=== PATIENT | female | born 1930 | race Caucasian/White ===

== ENCOUNTER 2016-09-15 13:33 | Inpatient (IN) | payer OTHER ==
[2016-09-14 23:03] LABS: % IRON SAT 15 % (20-50); A/G RATIO 0.9 (0.7-1.9); ALBUMIN 3.2 G/DL (3.5-5.0); ALKALINE PHOSPHATASE 71 U/L (45-117); BUN (BLOOD UREA NITROGEN) 17 MG/DL (6-23); CHLORIDE, SERUM 104 MMOL/L (96-112); CHOLESTEROL 181 MG/DL (< 200); CO2 (CARBON DIOXIDE) 25 MMOL/L (24-34); GFR AFRICAN AMERICAN 69 ML/MIN (>=60); GFR NON AFRICAN AMERICAN 59 ML/MIN (>=60); GLOBULIN 3.7 G/DL (2.5-4.1); IRON BINDING CAPACITY 239 MCG/DL (225-410); IRON, SERUM 36 MCG/DL (35-150); SGOT(AST) 19 U/L (5-40); SGPT(ALT) 17 U/L (5-65); SODIUM, SERUM 139 MMOL/L (135-148); TOTAL BILIRUBIN 0.3 MG/DL (0-1.2); TOTAL PROTEIN 6.9 G/DL (6.0-8.5)
[2016-09-14 23:10] LABS: CHOL/HDL RATIO(NOT ORDER) 3.8 (0-5); GLUCOSE, SERUM 115 MG/DL (60-99); HDL CHOLESTEROL 48 MG/DL (> 49); LDL CHOLESTEROL 83 MG/DL (< 130); NON-HDL CHOLESTEROL 133 MG/DL (< 160); TRIGLYCERIDE 253 MG/DL (< 150); ULTRASENSITIVE TSH 0.523 MCIU/ML (0.358-3.740)
--- NOTE | ~2016-09-15 | DS ---
Discharge Summary [facility] [address] [place]. [address] NAME: Kayla COLE : 34 STATUS : DIS IN PAT#: [id number] AGE: 85 ADM/REG DATE : 09/15/16 MR#: [id number] REPORT SERV DATE: 09/23/16 DICTATED BY: REBECCA RODRIGUEZ DATE: 09/22/16 REPORT STATUS : Draft TRANSCRIBED BY: MODL DATE: 09/22/16 ADMISSION DATE: 09/15/2016 DISCHARGE DATE: 09/22/2016 CONSULTANTS: Dr. Rebecca Fatima, Pulmonary Critical Care; Dr. Zain Gupta, Cardiology; Dr. Briscoe, Ear Nose and Throat; Dr. Jayna Novoa, Pulmonary. DISCHARGE DIAGNOSES: 1. 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 2. Hyponatremia due to diuretics, resolved. 3. Low blood pressure due to cardiomyopathy and medication. 4. Chronic pain due to fibromyalgia, on chronic narcotics. 5. History of iron-deficiency anemia. 6. History of gastroesophageal reflux disease. 7. Mild thrombocytopenia. HISTORY: This patient presented to the emergency room at [facility] complaining of shortness of breath. The ER felt she had stridor and a non-ST elevation myocardial infarction. They placed her on Solu-Medrol and heparin and had her admitted to the intensive care unit. The patient's cardiac troponins went up to 2.61. She was seen by Dr. Gupta of Cardiology. She had an echocardiogram on 09/16/2016 showing left atrial size 3.2 cm. Left ventricular ejection fraction estimated at 55%. No significant valvular abnormalities. She underwent a left heart catheterization with Dr. Josh Trammell on 09/16/2016 showing nonobstructive coronary artery disease, severe global left ventricular dysfunction sparing the base suggestive of stress-induced cardiomyopathy, ejection fraction 20%. Left ventricular end- diastolic pressure 23. No mitral regurgitation. No significant gradient across the aortic valve. Dr. Gupta recommended medical therapy with aspirin, beta paige, statin, and JAK inhibitor. The patient's blood pressures were low from the beginning and stayed low much of the time that she was here. She was not able to tolerate the Coreg or the lisinopril and these had to be discontinued because of blood pressures being too low. The patient did develop some hyponatremia while getting diuretics. This resolved after the diuretics were discontinued and she was given some saline intravenously. The patient did have some cough, and at one point in time, again was thought to possibly have stridor. Ear Nose and Throat, Dr. Briscoe, saw the patient in consultation. He indicated he did not find any obstruction to the airway whatsoever, but felt she just had some noisy breathing. Pulmonary, Dr. Novoa, recommended some Augmentin to complete a seven-day course. Her Discharge Summary [address] [address] NAME: Kayla COLE : 32 STATUS : DIS IN PAT#: [id number] AGE: 85 ADM/REG DATE : 09/15/16 MR#: [id number] REPORT SERV DATE: 09/23/16 DICTATED BY: REBECCA RODRIGUEZ DATE: 09/22/16 REPORT STATUS : Draft TRANSCRIBED BY: TRENTON DATE: 09/22/16 procalcitonin was less than 0.05. Her white blood count was normal. Physical therapy assessment found the need for inpatient rehab and those recommendations have been accepted by the patient. Case Management has been working to get her into rehab at [facility]. While here, she had two blood cultures, no growth. DISCHARGE MEDICATIONS: Augmentin 875 mg p.o. b.i.d. with meals through 09/26/2016 then stop; aspirin 81 mg daily; Caltrate 600 mg daily, ferrous sulfate 325 mg daily (hemoglobin at discharge 9.8); gabapentin 300 mg t.i.d.; magnesium oxide 400 mg daily; Singulair 10 mg daily; Prilosec 40 mg daily; Evista 60 mg daily; Florastor one p.o. b.i.d. for three weeks; zinc sulfate 110 mg p.o. daily; DuoNeb q.6 hours p.r.n. shortness of breath; Dulera 200/5 two puffs b.i.d., Tylenol 650 q.6 hours p.r.n. pain or fever; Mylanta 30 mL p.r.n. indigestion; Xanax 0.5 mg b.i.d. p.r.n. anxiety (chronic medicine for her); artificial tears p.r.n.; Flonase nasal spray p.r.n.; Requip 0.25 mg at bedtime, p.r.n. restless legs; Percocet 10/325 q.6 hours p.r.n. pain which is a chronic medicine for her; Lipitor 20 mg p.o. daily. I spent 39 minutes today with the patient and with discharge planning. DICTATED BY: Rebecca Rodriguez M.D. RSG/MODL Rebecca Rodriguez M.D. / [id number] CC: Franklyn Pérez M.D. [facility] HospitalFranklyn Duff M.D. TIMOTHY ASHBURN, MD
--- NOTE | ~2016-09-15 | CN ---
Consultation Report [facility] [address] [place] [place]. [address] NAME: NEMESIO COLE : 32 STATUS : ADM IN PAT#: [id number] AGE: 85 ADM/REG DATE : 09/15/16 MR#: [id number] REPORT SERV DATE: 09/16/16 DICTATED BY: DAILY GUPTA DATE: 09/16/16 REPORT STATUS : Draft TRANSCRIBED BY: MODL DATE: 09/16/16 CARDIOLOGY CONSULTATION DATE OF CONSULTATION: 09/16/2016 CHIEF COMPLAINT: Respiratory distress. HISTORY OF PRESENT ILLNESS: The patient is an 85-year-old female without known coronary artery disease, who presented to the emergency department with complaints of progressive respiratory distress. She was found to have elevated troponin and admitted to the Critical Care Service for respiratory failure and non-Q-wave GA. Currently, pain-free. On presentation, she reported some atypical chest pain. She does report however for the last several months, she has had intermittent chest pain, it can occur at rest, it is not reliably reproduced with exertion, but can occur with exertion. The patient is markedly sedentary. She reports significant fatigue and poor exercise tolerance with any physical activity. She states that she simply for the most part, walks to the bathroom with a walker. She becomes so fatigued in doing so that she cannot perform other activities and lays down to rest. She states that she has been treated for GERD with no improvement in these chest pain symptoms. She is currently pain-free. During the course of evaluation and admission, she underwent laboratories including cardiac enzymes, which were elevated. Troponin last evening 2.61. Subsequent troponin 2.33. Her electrocardiogram demonstrates no acute ST changes. She is currently pain-free. She has no past history of known coronary artery disease in 2013, and was seen in cardiology evaluation for preoperative risk assessment. Echocardiogram was unremarkable at that time. PAST MEDICAL HISTORY: 1. Chronic pain syndrome secondary to degenerative disc and joint disease. 2. Anxiety disorder. 3. Fibromyalgia. 4. Restless legs syndrome. 5. GERD. 6. Polymyalgia rheumatica. 7. Venous insufficiency. PAST SURGICAL HISTORY: Venous stripping, excision of various skin cancers, umbilical herniorrhaphy, and previous inguinal herniorrhaphy. FAMILY HISTORY: Mother of cerebrovascular accident at age 99. Father in his 70s - the patient is unaware of the etiology of his . SOCIAL HISTORY: The patient reports that she smoked two years as a young teenager, none since. She denies alcohol or illicit drug use. REVIEW OF SYSTEMS: Consultation Report [place] [id number] [place] [place]. [address] NAME: NEMESIO COLE : 32 STATUS : ADM IN PAT#: [id number] AGE: 85 ADM/REG DATE : 09/15/16 MR#: [id number] REPORT SERV DATE: 09/16/16 DICTATED BY: DAILY GUPTA DATE: 09/16/16 REPORT STATUS : Draft TRANSCRIBED BY: MODL DATE: 09/16/16 Review of systems is negative for all organ systems except per the history of present illness. PHYSICAL EXAMINATION: VITALS: Blood pressure 115/78, pulse 87 and regular, respirations 20 and unlabored, saturating 99% on 4 L nasal cannula. Weight 70 kg. GENERAL: Elderly female, in no acute distress. HEENT: Normal. NECK: Supple, no JVD or bruit, normal carotid upstroke bilaterally, no thyromegaly. LUNGS: Clear to auscultation and percussion. No wheezes, rales or rhonchi. No use of accessory muscles. CARDIOLOGY: Regular rhythm, normal S1, S2, no thrill, no murmur, rubs or gallops, normal PMI. ABDOMEN: Bowel sounds positive, soft, nontender, and nondistended. No masses or aortic bruits. No hepatosplenomegaly or hepatojugular reflux. EXTREMITIES: No edema. Normal pulses. No clubbing or cyanosis. SKIN: Warm and dry, no significant rash. NEUROLOGIC: Alert and oriented x 3. Appropriate mood. EKG: Sinus rhythm with nonspecific ST and T-wave changes. LABORATORIES: 1. Sodium 141, potassium 4.5, chloride 106, CO2 of 24, BUN 16, creatinine 0.85, glomerular filtration rate 63, troponin 2.33, glucose 157. WBC 5.4, hemoglobin 10.3, hematocrit 31.3, platelets 193,000. 2. CT of the chest - no evidence of pulmonary embolism. No evidence of aortic dissection. 3. Blood cultures negative x1 day. 4. Serial troponins 2.61 and 2.33. 5. Arterial blood gas on admission pH 7.4, pCO2 of 40, PO2 of 127, base excess -1. Bicarb 24, this is on 2 liters nasal cannula. IMPRESSION: Non-Q-wave myocardial infarction - currently asymptomatic on heparin drip, hemodynamically stable. We have discussed treatment options including medical management versus invasive evaluation including catheterization intervention is indicated. The patient desires to proceed with an invasive strategy as she has had longstanding recurrent chest pain which although treated for possible gastroesophageal reflux disease, has continued with inadequate control on medications. The risks, benefits, alternatives have been discussed with the patient. Complications including but not limited to, , myocardial infarction, stroke, renal failure, life-threatening arrhythmia, life-threatening allergic contrast reaction, and vascular cardiac injury, required emergent surgery have been discussed with the patient. The patient voices understanding these potential risks and desires to proceed. We will place further plans and recommendations on catheterization results. Consultation Report [place] [id number] [facility] [place]. [address] NAME: NEMESIO COLE : 34 STATUS : ADM IN [facility]#: [id number] AGE: 85 ADM/REG DATE : 09/15/16 MR#: [id number] REPORT SERV DATE: 09/16/16 DICTATED BY: DAILY GUPTA DATE: 09/16/16 REPORT STATUS : Draft TRANSCRIBED BY: TRENTON DATE: 09/16/16 CSL/TRENTON Simone Gupta M.D. / [id number] CC: MD Charles Cates M.D.
--- NOTE | ~2016-09-15 | HP ---
History And Physical [place] [id number] [place]. [address] NAME: NEMESIO COLE : 34 STATUS : ADM IN [facility]#: [id number] AGE: 85 ADM/REG DATE : 09/15/16 MR#: [id number] REPORT SERV DATE: 09/16/16 DICTATED BY: REBECCA FATIMA DATE: 09/15/16 REPORT STATUS : Draft TRANSCRIBED BY: MODL DATE: 09/15/16 DATE OF ADMISSION: 09/15/2016 TIME: 1930 hours. Seen in MICU bed 11. HISTORY OF PRESENT ILLNESS: The patient presented to the ER via EMS for increased shortness of breath and discomfort. Came to the ER, was evaluated by the ER physician, who thought she had mild respiratory failure, stridor, and non-STEMI. She was placed on Solu-Medrol and heparin. The patient says she was in her bathroom when she began to have intermittent shortness of breath. This has happened to her before. She reports having had sepsis before in the past as well. Currently, awake and alert, on nasal cannula with saturation of 98%. EKG shows normal. PAST MEDICAL HISTORY: Significant for polymyalgia rheumatica, iron deficiency anemia, restless legs, osteoarthritis, GERD, fibromyalgia, history of rectal prolapse status post repair, history of uterine prolapse, venous insufficiency status post inguinal hernia repair, umbilical hernia repair, skin cancer excision, vein excision, vein stripping repair. ALLERGIES: NO KNOWN ALLERGIES. HOME MEDICATIONS: Include albuterol, nebulizer, Xanax 0.5 twice a day, artificial tears, calcium carbonate 600 mg tab daily, ferrous sulfate 325 twice a day, fluticasone nasal spray, Neurontin 300 three times a day, Mag-Ox 400, montelukast 10 mg daily, Prilosec 40 mg p.o. daily, oxycodone and APAP 10/325 every six hours, Pyridium 100 mg three times a day, Evista 60 mg p.o. daily, Requip 0.25 mg p.o. daily, zinc sulfate 110 mg daily. REVIEW OF SYSTEMS: As noted in the H and P and past medical history. No pain at this point in time. FAMILY HISTORY: Significant for mother at 99 and father of cancer, type unknown. SOCIAL HISTORY: Denies any smoking, alcohol, or illicit medications. PHYSICAL EXAMINATION: VITAL SIGNS: Currently are stable, blood pressure 96/66, pulse 105, temperature 98.1, sat 98%. GENERAL: The patient is awake, thin-appearing female, in no acute distress. HEENT: Head is normocephalic. Sclerae and conjunctivae are clear. NECK: Supple. Good upstroke. I could not hear any wheezing at this time. Slightly increased AP diameter. CARDIAC: S1 and S2. No murmurs or gallops. ABDOMEN: Soft and nontender. No masses. EXTREMITIES: Osteoarthritis, rheumatoid arthritis changes. History And Physical [address] [address] NAME: NEMESIO COLE : 32 STATUS : ADM IN [facility]#: [id number] AGE: 85 ADM/REG DATE : 09/15/16 MR#: [id number] REPORT SERV DATE: 09/16/16 DICTATED BY: REBECCA FATIMA DATE: 09/15/16 REPORT STATUS : Draft TRANSCRIBED BY: TRENTON DATE: 09/15/16 NEUROLOGIC: Cranial nerves 2 through 12 intact. Deep tendon reflexes appear to be normal. LABORATORY DATA: EKG is normal. Sodium is 139, potassium 4.5, chloride 105, CO2 of 26, BUN 17, creatinine 0.82, glucose 117, H and H 10.6 and 32.9. White count 8400, platelets, albumin 3.0, PT 13.3, INR 1.0, troponin 1.1. PH of 7.4, pCO2 of 40, PO2 of 127, bicarb 29.2. Chest x-ray, mild chronic bronchitic pattern. No acute infiltrate demonstrated. IMPRESSION: Mild troponin elevation, possible pic-[id number]-enagkxl elevation myocardial infarction, on heparin; very mild respiratory failure; history of stridor, etiology unclear. PLAN: Continue heparin. Monitor H and H. get echocardiogram. Repeat troponin. RP/MODL Rebecca Fatima M.D. / [id number] CC: MD Charles Cates M.D.
[~2016-09-15 13:33] MED LIST: *UNABLE3; AMOXICILLIN PO; AMOXIL875 MG PO; BONE HEALTH PO; CA/MAG/ZINC/VIT D PO; CLEAR EYE1 OPH; CYANO1000T PO; ENDOCET1 TA4 PO; EVISTA60 PO; FESO4 PO; FLONASE NAS; HEMOCYTE324 MG PO; HUMI PO; IRON OTC PO; MIRALAXPKT PO; MOMUD PO; MS CONTIN PO; MSCONT60 PO; MSCONTIN PO; P5 PO; PERCOCET1 TA4 PO; PRILO PO; PROTONIX PO; PYR100B PO; REQUIP PO; REQUIP25 PO; SOMATAB PO; TESS PO; VITAMIN D31000 UNIT PO; XANAX1 MG PO; [UNRECOGNIZED DRUG - OTHER] PO
[2016-09-15 14:29] LABS: ALLENS TEST Pos; BE (BASE EXCESS) -0.8 MEQ/L (0 +/- 2.5); CARBOXYHEMOGLOBIN 1.2 % (0-3); DEVICE NC; HEMOBLOGIN CONTENT 11.4 G/DL (12-16); INSTRUMENT SERIAL # 8087; METHEMOGLOBIN 0.2 % (0-3); O2 CONTENT 15.8 VOL% (18-24); PCO2 (CO2 TENSION) 40 MMHG (35-45); PO2 (O2 TENSION) 127 MMHG (79-93); SAMPLE Arterial
[2016-09-15 14:34] LABS: BASOPHILS 0.6 %; BASOPHILS ABSOLUTE 0.05 10/3/uL (0.0-0.16); EOSINOPHILS 2.7 %; EOSINOPHILS ABSOLUTE 0.23 10/3/uL (0.0-0.53); ER CBC TAT 0 Hrs 07 Mins; HEMATOCRIT 32.9 % (36.0-48.0); HEMOGLOBIN 10.6 g/dL (12.0-16.0); IMMATURE GRANULOCYTES 0.5 %; IMMATURE GRANULOCYTES ABSOLUTE 0.04 10/3/uL (0.0-0.11); LYMPHOCYTES 14.8 %; LYMPHOCYTES ABSOLUTE 1.25 10/3/uL (0.67-4.30); MANUAL DIFF NO %; MEAN CORPUS HGB CONC 32.2 g/dL (32.0-36.0); MEAN CORPUSCULAR HEMOGLOB 29.2 pg (26.0-34.0); MEAN CORPUSCULAR VOLUME 90.6 fL (80-100); MEAN PLATELET VOLUME 12.9 fL (9.2-13.0); MONOCYTES ABSOLUTE 0.76 10/3/uL (0.21-1.20); NEUTROPHILS 72.4 %; NEUTROPHILS ABSOLUTE 6.09 10/3/uL (2.02-8.40); PLATELET COUNT 197 10/3/uL (150-400); RED CELL COUNT 3.63 10/6/uL (4.0-5.6); WHITE BLOOD CELLS 8.4 10/3/uL (4.5-10.5)
[2016-09-15 14:45] LABS: PARTIAL THROMBO TIME 28.7 SEC (22.5-37.2); PROTIME (NOT ORD) 13.3 SEC (12.0-14.5)
[2016-09-15 14:59] LABS: A/G RATIO 0.7 (0.7-1.9); ALKALINE PHOSPHATASE 69 U/L (45-117); BUN (BLOOD UREA NITROGEN) 17 MG/DL (6-23); CHLORIDE, SERUM 105 MMOL/L (96-112); CO2 (CARBON DIOXIDE) 26 MMOL/L (24-34); CREATININE 0.82 MG/DL (0.55-1.02); GFR AFRICAN AMERICAN 77 ML/MIN (>=60); GFR NON AFRICAN AMERICAN 66 ML/MIN (>=60); GLOBULIN 4.2 G/DL (2.5-4.1); GLUCOSE, SERUM 117 MG/DL (60-99); POTASSIUM, SERUM 4.5 MMOL/L (3.5-5.3); SGOT(AST) 19 U/L (5-40); SGPT(ALT) 17 U/L (5-65); SODIUM, SERUM 139 MMOL/L (135-148); TOTAL BILIRUBIN 0.5 MG/DL (0-1.2); TOTAL PROTEIN 7.2 G/DL (6.0-8.5)
[2016-09-15 15:03] LABS: TROPONIN I 1.01 NG/ML (<0.05)
[2016-09-15] MEDS ORDERED: FERROUS SULF325 M1 PO (16:16)
[2016-09-15] MEDS ORDERED: PRILOSEC40 MG PO (16:16)
[2016-09-15] MEDS ORDERED: NEUR300 PO (16:17)
[2016-09-15] MEDS ORDERED: REQUIP25 PO (16:17)
[2016-09-15] MEDS ORDERED: SINGULAIR1 PO (16:18)
[2016-09-15] MEDS ORDERED: EVISTA60 PO (16:18)
[2016-09-15] MEDS ORDERED: PERCOCET 10/3251 TAB PO (16:19)
[2016-09-15] MEDS ORDERED: X5 PO (16:20)
[2016-09-15] MEDS ORDERED: MAGOX4 PO (16:20)
[2016-09-15] MEDS ORDERED: ORAZINC110 MG PO (16:21)
[2016-09-15] MEDS ORDERED: CALTRAT600 PO (16:22)
[2016-09-15] MEDS ORDERED: HYPOTEARS OPH S15 ML OPH (16:22)
[2016-09-15] MEDS ORDERED: ALBUTEROL0.083 % INH (16:23)
[2016-09-15] MEDS ORDERED: FLONASE NAS (16:25)
[2016-09-15] MEDS ORDERED: PYR100B PO (16:27)
[2016-09-16 06:01] LABS: BASOPHILS 0.2 %; BASOPHILS ABSOLUTE 0.01 10/3/uL (0.0-0.16); EOSINOPHILS 0 %; HEMATOCRIT 31.3 % (36.0-48.0); HEMOGLOBIN 10.3 g/dL (12.0-16.0); IMMATURE GRANULOCYTES 0.2 %; IMMATURE GRANULOCYTES ABSOLUTE 0.01 10/3/uL (0.0-0.11); LYMPHOCYTES 22.6 %; LYMPHOCYTES ABSOLUTE 1.21 10/3/uL (0.67-4.30); MEAN CORPUS HGB CONC 32.9 g/dL (32.0-36.0); MEAN CORPUSCULAR HEMOGLOB 29.6 pg (26.0-34.0); MEAN CORPUSCULAR VOLUME 89.9 fL (80-100); MEAN PLATELET VOLUME 13.2 fL (9.2-13.0); MONOCYTES ABSOLUTE 0.32 10/3/uL (0.21-1.20); NEUTROPHILS ABSOLUTE 3.81 10/3/uL (2.02-8.40); PLATELET COUNT 193 10/3/uL (150-400); RED CELL COUNT 3.48 10/6/uL (4.0-5.6); WHITE BLOOD CELLS 5.4 10/3/uL (4.5-10.5)
[2016-09-16 06:03] LABS: MANUAL DIFF NO %
[2016-09-16 06:10] LABS: BUN (BLOOD UREA NITROGEN) 16 MG/DL (6-23); CHLORIDE, SERUM 106 MMOL/L (96-112); CO2 (CARBON DIOXIDE) 24 MMOL/L (24-34); CREATININE 0.85 MG/DL (0.55-1.02); GFR AFRICAN AMERICAN 73 ML/MIN (>=60); GFR NON AFRICAN AMERICAN 63 ML/MIN (>=60); POTASSIUM, SERUM 4.5 MMOL/L (3.5-5.3); SODIUM, SERUM 141 MMOL/L (135-148)
[2016-09-16 06:14] LABS: GLUCOSE, SERUM 157 MG/DL (60-99); TROPONIN I 2.33 NG/ML (<0.05)
[2016-09-16 06:35] LABS: PLATELET ESTIMATE ADQ (ADEQUATE)
[2016-09-16 06:37] LABS: RBC MORPHOLOGY NORM (NORMAL)
[2016-09-16 23:44] LABS: BASOPHILS 0.2 %; BASOPHILS ABSOLUTE 0.02 10/3/uL (0.0-0.16); EOSINOPHILS 0.4 %; EOSINOPHILS ABSOLUTE 0.04 10/3/uL (0.0-0.53); HEMOGLOBIN 8.7 g/dL (12.0-16.0); IMMATURE GRANULOCYTES 0.4 %; IMMATURE GRANULOCYTES ABSOLUTE 0.04 10/3/uL (0.0-0.11); LYMPHOCYTES 15.7 %; LYMPHOCYTES ABSOLUTE 1.48 10/3/uL (0.67-4.30); MEAN CORPUS HGB CONC 32.3 g/dL (32.0-36.0); MEAN CORPUSCULAR HEMOGLOB 29.7 pg (26.0-34.0); MEAN CORPUSCULAR VOLUME 91.8 fL (80-100); MEAN PLATELET VOLUME 12.8 fL (9.2-13.0); MONOCYTES 8.2 %; MONOCYTES ABSOLUTE 0.77 10/3/uL (0.21-1.20); NEUTROPHILS 75.1 %; NEUTROPHILS ABSOLUTE 7.07 10/3/uL (2.02-8.40); PLATELET COUNT 155 10/3/uL (150-400); RBC DISTRIBUTION WIDTH 14.4 % (12.0-16.0); RED CELL COUNT 2.93 10/6/uL (4.0-5.6)
[2016-09-16 23:50] LABS: HEMATOCRIT 26.9 % (36.0-48.0); MANUAL DIFF NO %; WHITE BLOOD CELLS 9.4 10/3/uL (4.5-10.5)
[2016-09-16 23:56] LABS: CALCIUM, SERUM 8.1 MG/DL (8.5-10.4); CHLORIDE, SERUM 108 MMOL/L (96-112); CO2 (CARBON DIOXIDE) 25 MMOL/L (24-34); CREATININE 0.97 MG/DL (0.55-1.02); GFR AFRICAN AMERICAN 63 ML/MIN (>=60); GFR NON AFRICAN AMERICAN 54 ML/MIN (>=60); GLUCOSE, SERUM 133 MG/DL (60-99); POTASSIUM, SERUM 4.1 MMOL/L (3.5-5.3); SODIUM, SERUM 141 MMOL/L (135-148)
[2016-09-17 00:01] LABS: BUN (BLOOD UREA NITROGEN) 22 MG/DL (6-23)
[2016-09-17 04:10] LABS: BASOPHILS 0.3 %; BASOPHILS ABSOLUTE 0.02 10/3/uL (0.0-0.16); EOSINOPHILS 0.8 %; EOSINOPHILS ABSOLUTE 0.06 10/3/uL (0.0-0.53); HEMATOCRIT 26.9 % (36.0-48.0); HEMOGLOBIN 8.6 g/dL (12.0-16.0); IMMATURE GRANULOCYTES 0.5 %; IMMATURE GRANULOCYTES ABSOLUTE 0.04 10/3/uL (0.0-0.11); LYMPHOCYTES 15.2 %; MEAN CORPUSCULAR HEMOGLOB 29.5 pg (26.0-34.0); MEAN CORPUSCULAR VOLUME 92.1 fL (80-100); MONOCYTES 6.9 %; MONOCYTES ABSOLUTE 0.54 10/3/uL (0.21-1.20); NEUTROPHILS 76.3 %; NEUTROPHILS ABSOLUTE 6.02 10/3/uL (2.02-8.40); PLATELET COUNT 149 10/3/uL (150-400); RBC DISTRIBUTION WIDTH 14.5 % (12.0-16.0); RED CELL COUNT 2.92 10/6/uL (4.0-5.6); WHITE BLOOD CELLS 7.9 10/3/uL (4.5-10.5)
[2016-09-17 04:16] LABS: MANUAL DIFF NO %
[2016-09-17 04:35] LABS: BUN (BLOOD UREA NITROGEN) 21 MG/DL (6-23); CHLORIDE, SERUM 109 MMOL/L (96-112); CO2 (CARBON DIOXIDE) 26 MMOL/L (24-34); CREATININE 0.85 MG/DL (0.55-1.02); GFR AFRICAN AMERICAN 73 ML/MIN (>=60); GFR NON AFRICAN AMERICAN 63 ML/MIN (>=60); GLUCOSE, SERUM 120 MG/DL (60-99); HDL CHOLESTEROL 40 MG/DL (> 49); POTASSIUM, SERUM 4.5 MMOL/L (3.5-5.3); SODIUM, SERUM 144 MMOL/L (135-148)
[2016-09-17 04:37] LABS: CHOL/HDL RATIO(NOT ORDER) 3.4 (0-5); CHOLESTEROL 136 MG/DL (< 200); LDL CHOLESTEROL 75 MG/DL (< 130); NON-HDL CHOLESTEROL 96 MG/DL (< 160); PHOSPHORUS, SERUM 2.5 MG/DL (2.5-4.5); TRIGLYCERIDE 105 MG/DL (< 150)
[2016-09-18 06:03] LABS: BASOPHILS 0 %; EOSINOPHILS 0 %; HEMATOCRIT 28.8 % (36.0-48.0); HEMOGLOBIN 9.2 g/dL (12.0-16.0); IMMATURE GRANULOCYTES 0.5 %; IMMATURE GRANULOCYTES ABSOLUTE 0.03 10/3/uL (0.0-0.11); LYMPHOCYTES 10.1 %; LYMPHOCYTES ABSOLUTE 0.58 10/3/uL (0.67-4.30); MEAN CORPUS HGB CONC 31.9 g/dL (32.0-36.0); MEAN CORPUSCULAR HEMOGLOB 29.1 pg (26.0-34.0); MEAN CORPUSCULAR VOLUME 91.1 fL (80-100); MONOCYTES 4.2 %; MONOCYTES ABSOLUTE 0.24 10/3/uL (0.21-1.20); NEUTROPHILS 85.2 %; NEUTROPHILS ABSOLUTE 4.92 10/3/uL (2.02-8.40); PLATELET COUNT 150 10/3/uL (150-400); RBC DISTRIBUTION WIDTH 14.3 % (12.0-16.0); RED CELL COUNT 3.16 10/6/uL (4.0-5.6); WHITE BLOOD CELLS 5.8 10/3/uL (4.5-10.5)
[2016-09-18 06:08] LABS: MANUAL DIFF NO %
[2016-09-18 06:26] LABS: BUN (BLOOD UREA NITROGEN) 21 MG/DL (6-23); CALCIUM, SERUM 8.4 MG/DL (8.5-10.4); CHLORIDE, SERUM 105 MMOL/L (96-112); CO2 (CARBON DIOXIDE) 29 MMOL/L (24-34); CREATININE 0.98 MG/DL (0.55-1.02); GFR AFRICAN AMERICAN 62 ML/MIN (>=60); GFR NON AFRICAN AMERICAN 53 ML/MIN (>=60); PHOSPHORUS, SERUM 1.8 MG/DL (2.5-4.5); POTASSIUM, SERUM 4.2 MMOL/L (3.5-5.3); SODIUM, SERUM 140 MMOL/L (135-148)
[2016-09-18 06:27] LABS: GLUCOSE, SERUM 177 MG/DL (60-99)
[2016-09-19 05:36] LABS: CALCIUM, SERUM 9.1 MG/DL (8.5-10.4); CHLORIDE, SERUM 102 MMOL/L (96-112); CO2 (CARBON DIOXIDE) 30 MMOL/L (24-34); CREATININE 0.99 MG/DL (0.55-1.02); GFR AFRICAN AMERICAN 61 ML/MIN (>=60); GFR NON AFRICAN AMERICAN 53 ML/MIN (>=60); POTASSIUM, SERUM 4.3 MMOL/L (3.5-5.3); SODIUM, SERUM 138 MMOL/L (135-148)
[2016-09-19 05:38] LABS: BUN (BLOOD UREA NITROGEN) 30 MG/DL (6-23); GLUCOSE, SERUM 114 MG/DL (60-99)
[2016-09-20 05:37] LABS: BASOPHILS 0.9 %; BASOPHILS ABSOLUTE 0.09 10/3/uL (0.0-0.16); EOSINOPHILS ABSOLUTE 0.63 10/3/uL (0.0-0.53); HEMATOCRIT 31.2 % (36.0-48.0); HEMOGLOBIN 10.1 g/dL (12.0-16.0); IMMATURE GRANULOCYTES 3.6 %; IMMATURE GRANULOCYTES ABSOLUTE 0.38 10/3/uL (0.0-0.11); LYMPHOCYTES 28.8 %; LYMPHOCYTES ABSOLUTE 3.05 10/3/uL (0.67-4.30); MEAN CORPUS HGB CONC 32.4 g/dL (32.0-36.0); MEAN CORPUSCULAR HEMOGLOB 29.2 pg (26.0-34.0); MEAN CORPUSCULAR VOLUME 90.2 fL (80-100); MEAN PLATELET VOLUME 13.1 fL (9.2-13.0); MONOCYTES 9.9 %; MONOCYTES ABSOLUTE 1.05 10/3/uL (0.21-1.20); NEUTROPHILS 50.8 %; NEUTROPHILS ABSOLUTE 5.38 10/3/uL (2.02-8.40); PLATELET COUNT 170 10/3/uL (150-400); RBC DISTRIBUTION WIDTH 14.4 % (12.0-16.0); RED CELL COUNT 3.46 10/6/uL (4.0-5.6)
[2016-09-20 05:43] LABS: CALCIUM, SERUM 8.7 MG/DL (8.5-10.4); CHLORIDE, SERUM 94 MMOL/L (96-112); CO2 (CARBON DIOXIDE) 31 MMOL/L (24-34); GFR AFRICAN AMERICAN 33 ML/MIN (>=60); GFR NON AFRICAN AMERICAN 29 ML/MIN (>=60); GLUCOSE, SERUM 99 MG/DL (60-99); POTASSIUM, SERUM 4.1 MMOL/L (3.5-5.3)
[2016-09-20 05:44] LABS: BUN (BLOOD UREA NITROGEN) 49 MG/DL (6-23); CREATININE 1.63 MG/DL (0.55-1.02); SODIUM, SERUM 131 MMOL/L (135-148)
[2016-09-20 05:46] LABS: MANUAL DIFF NO %; WHITE BLOOD CELLS 10.6 10/3/uL (4.5-10.5)
[2016-09-20 14:31] LABS: RBC FOLATE 1006 ng/mL
[2016-09-21 05:04] LABS: HEMATOCRIT 32.1 % (36.0-48.0); HEMOGLOBIN 10.5 g/dL (12.0-16.0); MEAN CORPUS HGB CONC 32.7 g/dL (32.0-36.0); MEAN CORPUSCULAR HEMOGLOB 29.2 pg (26.0-34.0); MEAN CORPUSCULAR VOLUME 89.2 fL (80-100); MEAN PLATELET VOLUME 13.2 fL (9.2-13.0); PLATELET COUNT 183 10/3/uL (150-400); RBC DISTRIBUTION WIDTH 13.8 % (12.0-16.0); WHITE BLOOD CELLS 13.1 10/3/uL (4.5-10.5)
[2016-09-21 05:05] LABS: MANUAL DIFF YES %
[2016-09-21 05:20] LABS: CALCIUM, SERUM 8.6 MG/DL (8.5-10.4); CHLORIDE, SERUM 93 MMOL/L (96-112); CO2 (CARBON DIOXIDE) 27 MMOL/L (24-34); GFR AFRICAN AMERICAN 37 ML/MIN (>=60); GFR NON AFRICAN AMERICAN 32 ML/MIN (>=60); SODIUM, SERUM 127 MMOL/L (135-148)
[2016-09-21 05:21] LABS: BUN (BLOOD UREA NITROGEN) 55 MG/DL (6-23); GLUCOSE, SERUM 120 MG/DL (60-99); POTASSIUM, SERUM 5.2 MMOL/L (3.5-5.3)
[2016-09-21 05:30] LABS: BAND NEUTROPHILS 1 %; BASOPHILS 1 %; BASOPHILS ABSOLUTE (CALC) 0.13 10/3/uL (0.0-0.16); EOSINOPHILS 5 %; EOSINOPHILS ABSOLUTE (CALC) 0.66 10/3/uL (0.0-0.53); IMMATURE GRANS ABSOLUTE (CALC) 0.26 10/3/uL (0.0-0.11); LYMPHOCYTES 16 %; METAMYELOCYTES 2 %; MONOCYTES 4 %; MONOCYTES ABSOLUTE (CALC) 0.52 10/3/uL (0.21-1.20); NEUTROPHILS ABSOLUTE (CALC) 9.43 10/3/uL (2.02-8.40); SEGMENTED NEUTROPHIL (0) 71 %; TOTAL NUCLEATED CELLS 100
[2016-09-21 05:31] LABS: PLATELET ESTIMATE ADQ (ADEQUATE); RBC MORPHOLOGY NORM (NORMAL)
[2016-09-21 19:58] LABS: PROCALCITONIN <0.05 ng/mL (<0.5)
[2016-09-22 05:42] LABS: HEMATOCRIT 29.7 % (36.0-48.0); HEMOGLOBIN 9.8 g/dL (12.0-16.0); MEAN CORPUSCULAR HEMOGLOB 29.9 pg (26.0-34.0); MEAN CORPUSCULAR VOLUME 90.5 fL (80-100); MEAN PLATELET VOLUME 12.6 fL (9.2-13.0); PLATELET COUNT 149 10/3/uL (150-400); RED CELL COUNT 3.28 10/6/uL (4.0-5.6)
[2016-09-22 05:44] LABS: MANUAL DIFF YES %; WHITE BLOOD CELLS 6.6 10/3/uL (4.5-10.5)
[2016-09-22 05:53] LABS: BUN (BLOOD UREA NITROGEN) 37 MG/DL (6-23); CALCIUM, SERUM 8.7 MG/DL (8.5-10.4); CHLORIDE, SERUM 104 MMOL/L (96-112); CO2 (CARBON DIOXIDE) 30 MMOL/L (24-34); CREATININE 1.09 MG/DL (0.55-1.02); GFR AFRICAN AMERICAN 54 ML/MIN (>=60); GFR NON AFRICAN AMERICAN 47 ML/MIN (>=60); GLUCOSE, SERUM 113 MG/DL (60-99); POTASSIUM, SERUM 5.5 MMOL/L (3.5-5.3); SODIUM, SERUM 139 MMOL/L (135-148)
[2016-09-22 06:36] LABS: BAND NEUTROPHILS 1 %; EOSINOPHILS 6 %; IMMATURE GRANS ABSOLUTE (CALC) 0.33 10/3/uL (0.0-0.11); LYMPHOCYTES 24 %; LYMPHOCYTES ABSOLUTE (CALC) 1.58 10/3/uL (0.67-4.30); METAMYELOCYTES 3 %; MONOCYTES 1 %; MONOCYTES ABSOLUTE (CALC) 0.07 10/3/uL (0.21-1.20); MYELOCYTES 2 %; NEUTROPHILS ABSOLUTE (CALC) 4.22 10/3/uL (2.02-8.40); PLATELET ESTIMATE ADQ (ADEQUATE); SEGMENTED NEUTROPHIL (0) 63 %; TOTAL NUCLEATED CELLS 100
[2016-09-22 06:37] LABS: ELLIPTOCYTES 1+ (3-10/OIF) (0-2/OIF)
== END 2016-09-22 14:23 | DRG 286 ==
LOC: ER 13:33 → MIC 16:33 → 6NO 09-17 11:25
PROVIDERS: Emergency Medicine; Family Medicine; Hospitalist; Internal Medicine; Internal Medicine Cardiovascular Disease; Internal Medicine Critical Care Medicine
PROC: 4A023N7 Measurement of Cardiac Sampling and Pressure, Left Heart, Percutaneous Approach (ICD-10-PCS; principal; 2016-09-16)
PROC: B2111ZZ Fluoroscopy of Multiple Coronary Arteries using Low Osmolar Contrast (ICD-10-PCS; 2016-09-16)
PROC: B2151ZZ Fluoroscopy of Left Heart using Low Osmolar Contrast (ICD-10-PCS; 2016-09-16)
DX: I51.81 Takotsubo syndrome (principal); J96.01 Acute respiratory failure with hypoxia; N17.9 Acute kidney failure, unspecified; D69.6 Thrombocytopenia, unspecified; I13.0 Hypertensive heart and chronic kidney disease with heart failure and stage 1 through stage 4 chronic kidney disease, or unspecified chronic kidney disease; I95.9 Hypotension, unspecified; E87.1 Hypo-osmolality and hyponatremia; I50.9 Heart failure, unspecified; M35.3 Polymyalgia rheumatica; D50.9 Iron deficiency anemia, unspecified; G25.81 Restless legs syndrome; M19.90 Unspecified osteoarthritis, unspecified site; K21.9 Gastro-esophageal reflux disease without esophagitis; M79.7 Fibromyalgia; G89.4 Chronic pain syndrome; J45.909 Unspecified asthma, uncomplicated; F32.9 Major depressive disorder, single episode, unspecified; I25.10 Atherosclerotic heart disease of native coronary artery without angina pectoris; R06.1 Stridor; E86.1 Hypovolemia; T50.2X5A Adverse effect of carbonic-anhydrase inhibitors, benzothiadiazides and other diuretics, initial encounter; R05 Cough; F41.9 Anxiety disorder, unspecified; N18.9 Chronic kidney disease, unspecified; Z80.8 Family history of malignant neoplasm of other organs or systems; Z79.899 Other long term (current) drug therapy; Z79.891 Long term (current) use of opiate analgesic; Z85.828 Personal history of other malignant neoplasm of skin
CPT/HCPCS: 36415; 36600; 70491; 71010; 71275; 80048; 80053; 80061; 81003; 82306; 82607; 82747; 82805; 83540; 83550; 83735; 83880; 83935; 84100; 84145; 84300; 84443; 84484; 85025; 85027; 85610; 85652; 85730; 87040; 87641; 93005; 93306; 93458; 94640; 94660; 96365; 96375; 97110-GP; 97116-GP; 97161-GP; 97166-GO; 99152; 99153; 99291; A9270-GY; C1769; C1887; C1894; J2250; J2405; J2930; J3010; Q9967